=== PATIENT | female | born 1980 | race Two or more races ===

== ENCOUNTER 2019-01-16 08:00 | Day surgery (SDC) | payer OTHER | END 2019-01-16 16:30 | disposition home or self-care (01) | LOC: CIR.AMB 08:00 → ADM 01-19 08:30 | DX: M24.542 Contracture, left hand (principal) ==

== ENCOUNTER 2022-07-26 12:42 | Emergency (ER) | payer OTHER ==
[~2022-07-26] VITALS: Ht 157.5 cm; Wt 52.2 kg
== END 2022-07-26 18:16 | disposition home or self-care (01) ==
LOC: ER 12:42
DX: S00.93XA Contusion of unspecified part of head, initial encounter (principal); W18.30XA Fall on same level, unspecified, initial encounter; Y93.9 Activity, unspecified; Y92.89 Other specified places as the place of occurrence of the external cause; Y99.9 Unspecified external cause status; Z88.6 Allergy status to analgesic agent; Z91.040 Latex allergy status